=== PATIENT | female | born 1960 | race Caucasian/White ===

== ENCOUNTER 2019-03-10 18:05 | Emergency (ER) | payer MEDICARE, OTHER ==
[2019-03-10] MEDS ORDERED: diphenhydrAMINE 50 MG/ML VIAL ONE (18:36)
[2019-03-10] MEDS ORDERED: Metoclopramide HCl 10 MG/2 ML VIAL ONE (18:36)
[2019-03-10 18:51] LABS: #Basophils 0.1 thou/uL (0.0-0.2); #Eosinphils 0.3 thou/uL (0.0-0.7); #Lymphocytes 1.3 thou/uL (1.20-3.40); #Monocytes 0.4 thou/uL (0.11-0.59); #Neutrophils 5.7 thou/uL (1.40-6.50); %Basophils 0.7 % (0.0-1.0); %Eosinophils 3.7 % (0.0-10.0); %Lymphocytes 16.4 % (21.0-51.0); %Monocytes 5.5 % (0.0-10.0); %Neutrophils 73.7 % (42.0-75.0); Hemoglobin 13.3 g/dL (12.0-16.0); Mean Corpuscular HGB CONC 33.8 g/dL (32.0-36.0); Mean Corpuscular Hemoglobin 32.1 pg (27.0-31.0); Mean Corpuscular Volume 94.8 fL (78.0-98.0); Mean Platelet Volume 9.2 fL (7.4-10.4); Platelet Count 164 thou/uL (130-400); RBC Distribution Width 11.9 % (11.5-14.5); Red Blood Cell (RBC) Count 4.15 mill/uL (4.20-5.40); White Blood Cell (WBC) Count 7.8 thou/uL (4.8-10.8)
[2019-03-10] MEDS ORDERED: Ketorolac Tromethamine 30 MG/ML VIAL ONE (19:13)
[2019-03-10] MEDS ORDERED: methylPREDNISolone Sod Succ/PF 125 MG/2 ML VIAL ONE (19:13)
[2019-03-10 19:16] LABS: ALT (SGPT) 11 U/L (8-55); AST (SGOT) 19 U/L (5-34); Albumin 4.1 g/dL (3.5-5.0); Alkaline Phosphatase 147 U/L (40-110); Anion Gap 14 mmol/L (10-20); BUN (Urea Nitrogen) 9 mg/dL (9.8-20.1); Bilirubin, Total 0.4 mg/dL (0.2-1.2); Calc. Creatinine Clearance 0 mL/min (70-130); Calcium 9.2 mg/dL (7.8-10.44); Carbon Dioxide 23 mmol/L (22-29); Chloride 107 mmol/L (98-107); Estimated GFR-MDRD 52; Globulin 3.1 g/dL (2.4-3.5); Glucose 110 mg/dL (70-105); Potassium 4.6 mmol/L (3.5-5.1); Protein, Total 7.2 g/dL (6.0-8.3); Sodium 139 mmol/L (136-145)
--- NOTE | 2019-03-10 19:21 | RAD ---
PORTABLE CHEST: 03/10/19 HISTORY: Dyspnea. Heart size and mediastinum are within normal limits. The lungs are clear of any infiltrative process. No significant bony findings. IMPRESSION: No active intrathoracic disease. POS: [facility]
== END 2019-03-10 22:12 | disposition home or self-care (01) ==
LOC: ERS 18:05
DX: J18.9 Pneumonia, unspecified organism (principal); G43.909 Migraine, unspecified, not intractable, without status migrainosus; I49.9 Cardiac arrhythmia, unspecified; F41.9 Anxiety disorder, unspecified; F17.210 Nicotine dependence, cigarettes, uncomplicated; Z79.899 Other long term (current) drug therapy
CPT/HCPCS: 71045; 80053; 83880; 84484; 85025; 87804; 93005; 94640; 94760; 96361; 96365; 96375; J1200; J1885; J2765; J2930; J7620

== ENCOUNTER 2020-04-16 15:19 | Observation (INO) | payer MEDICARE, OTHER ==
[2020-04-16 15:53] LABS: #Eosinphils 0.2 thou/uL (0.0-0.7); #Lymphocytes 2.3 thou/uL (1.20-3.40); #Monocytes 0.6 thou/uL (0.11-0.59); #Neutrophils 6.1 thou/uL (1.40-6.50); %Basophils 0.5 % (0.0-1.0); %Eosinophils 1.8 % (0.0-10.0); %Lymphocytes 25.1 % (21.0-51.0); %Monocytes 6.3 % (0.0-10.0); %Neutrophils 66.3 % (42.0-75.0); Hemoglobin 11.9 g/dL (12.0-16.0); Mean Corpuscular HGB CONC 33.3 g/dL (32.0-36.0); Mean Corpuscular Hemoglobin 32.5 pg (27.0-31.0); Mean Corpuscular Volume 97.7 fL (78.0-98.0); Mean Platelet Volume 8.9 fL (7.4-10.4); Platelet Count 187 thou/uL (130-400); RBC Distribution Width 12.6 % (11.5-14.5); Red Blood Cell (RBC) Count 3.66 mill/uL (4.20-5.40); White Blood Cell (WBC) Count 9.2 thou/uL (4.8-10.8)
[2020-04-16 15:59] LABS: Prothrombin Time 13.4 sec (12.0-14.7)
[2020-04-16 16:16] LABS: ALT (SGPT) 17 U/L (8-55); AST (SGOT) 40 U/L (5-34); Albumin 3.9 g/dL (3.5-5.0); Alkaline Phosphatase 103 U/L (40-110); Anion Gap 13 mmol/L (10-20); BUN (Urea Nitrogen) 14 mg/dL (9.8-20.1); Bilirubin, Total 0.2 mg/dL (0.2-1.2); Calc. Creatinine Clearance 0 mL/min (70-130); Calcium 8.9 mg/dL (7.8-10.44); Carbon Dioxide 23 mmol/L (22-29); Chloride 108 mmol/L (98-107); Globulin 3.1 g/dL (2.4-3.5); Glucose 138 mg/dL (70-105); Sodium 142 mmol/L (136-145)
[2020-04-16 16:23] LABS: Potassium 2.4 mmol/L (3.5-5.1)
--- NOTE | 2020-04-16 16:33 | CT ---
Head CT without contrast 04/16/2020: COMPARISON: 06/28/2015 HISTORY: Left-sided weakness and numbness with slurred speech TECHNIQUE: Axial CT imaging at 5 mm intervals from vertex through skull base without contrast FINDINGS: The visualized paranasal sinuses and mastoid air cells are well-aerated. No displaced mary rial fracture. No intracranial hemorrhage, midline shift, mass effect, or ventricular enlargement. IMPRESSION: No acute findings. Results called to Dr. Stallings 4:27 PM 04/16/2020
[2020-04-16] MEDS ORDERED: Potassium Chloride 20 MEQ TAB ONE (16:59)
[2020-04-16 17:25] LABS: Bacteria/HPF 3+ HPF (None Seen); Bilirubin Negative (Negative); Blood, Urine 1+ (Negative); Clarity Turbid (Clear); Glucose, Urine (Dipstick) Normal (Negative); Ketone, Urine Negative (Negative); Leukocyte 250 Leu/uL (Negative); Nitrite 2+ (Negative); Protein, Urine (Dipstick) 70 mg/dL (Neg-Trace); RBC/HPF 0-3 HPF (0-3); Specific Gravity, Urine 1.024 (1.002-1.036); Squamous Epithelial 0-3 HPF (0-3); Urobilinogen Normal mg/dL (Less than 2); WBC/HPF 21-50 HPF (0-3)
[2020-04-16] MEDS ORDERED: Aspirin 325 MG TAB ONE (17:26)
[2020-04-16] MEDS ORDERED: Cefepime 1 GM VIAL ONE (18:47)
[2020-04-16 21:06] VITALS: BMI 29.1
[2020-04-16] MEDS ORDERED: Calcium Carbonate 500 MG ChewTAB PO PRN (21:09)
[2020-04-16] MEDS ORDERED: Ondansetron ODT 4 MG TAB PO PRN (21:09)
[2020-04-16] MEDS ORDERED: Acetaminophen 325 MG TAB PO PRN (21:09)
[2020-04-16] MEDS ORDERED: hydrALAZINE 20 MG/ML VIAL SLOW IVP PRN (21:12)
--- NOTE | 2020-04-16 21:20 | PDOC.FPRHP ---
- History of Present Illness Chief Complaint: altered History of Present Illness: Pt is a 60 yo F with a PMH of bipolar, schizophrenia, anxiety, HTN, arrythmia, SVT who presents with chief complaint of being altered after being found down by neighbor. Patient has no recollection of events that happened surrounding her f all. She denies LOC. States nothing like this has happened in the past. She states her neighbor found her and her son is the one who brought her to the ED, however her story changed multiple times. She did state that she knows she had a panic attack this morning and states that these have been increasing in number and intensity. She is unsure of triggers. She follows with Dr. Rouse, psychiatrist, last apt was yesterday. He made no medication changes. She is a poor historian, and she has tangential, broken speech. Denies PANDA, vision changes, CP, SOB, fever, abdominal pain, history of seizure disorder. She does say she has been dizzy and weak for the last week with a decreased appetite. She lives at home alone. ED Course: 1L fluids, Kdur 40mEq, ASA, Rocephin - Allergies/Adverse Reactions Allergies Allergy/AdvReac Type Severity Reaction Status Date / Time codeine Allergy Anaphylaxis Verified 04/16/20 21:34 Sulfa (Sulfonamide Allergy Verified 04/16/20 21:34 Antibiotics) - Home Medications Medication Instructions Recorded Confirmed Type Gabapentin 1 cap PO QID 04/16/20 04/17/20 History Levetiracetam [levETIRAcetam] 250 mg PO BID 04/16/20 04/17/20 History Propranolol HCl [Propranolol HCl 120 mg PO DAILY 04/16/20 04/17/20 History ER] Topiramate 150 mg PO BID 04/16/20 04/17/20 History clonazePAM [Clonazepam] 2 mg PO TID PRN 04/16/20 04/17/20 History Cephalexin [Keflex] 500 mg PO Q12H 2 Days #3 cap 04/17/20 Rx Cyanocobalamin (Vitamin B-12) 1,000 mcg PO DAILY 30 Days #30 tab 04/17/20 Rx [Vitamin B-12] Folic Acid [Folvite] 1 mg PO DAILY 30 Days #30 tab 04/17/20 Rx - History PMHx: bipolar, schizophrenia, anxiety, HTN, arrythmia, SVT PSHx: bilateral shoulder surgery FHx: parents- cancer of some kind Social: 50 pack year history smoking 1ppd, denies alcohol or drugs - Review of Systems ROS unobtainable: due to mental status (limited due to mental status) General: denies: fever/chills Eyes: denies: vision changes Respiratory: denies: shortness of breath Cardiovascular: denies: chest pain Psychological: denies: anxiety, depression - Vital signs BP: 125/65 HR: 77 RR: 16 Pox: 98% on RA Wt: 79kg - Physical Exam -Constitutional: unusual affect, NAD and non toxic appearing but sleepy HEENT: normocephalic and atraumatic, EOMI, grossly normal vision, grossly normal hearing -HEENT: pupils do not react appropriately to light, right side even more sluggish than left, pupils dilated Neck: supple Heart: RRR, normal S1/S2 Lungs: CTAB, no respiratory distress Abdomen: soft, non-tender Neurological: CN II-XII intact -Neurological: dysdiadochokinesia and dysmetria noted on exam Skin: capillary refill <2 seconds -Psychiatric: speech is broken and tangential FMR H&P: Results - Labs Result Diagrams: 04/17/20 07:53 04/17/20 13:29 Lab results: WBC 9.2 thou/uL (4.8-10.8) 04/16/20 15:37 Hgb 11.9 g/dL (12.0-16.0) L 04/16/20 15:37 Hct 35.8 % (36.0-47.0) L 04/16/20 15:37 MCV 97.7 fL (78.0-98.0) 04/16/20 15:37 Plt Count 187 thou/uL (130-400) 04/16/20 15:37 Neutrophils % 66.3 % (42.0-75.0) 04/16/20 15:37 Sodium 142 mmol/L (136-145) 04/16/20 15:37 Potassium 2.4 mmol/L (3.5-5.1) L* 04/16/20 15:37 Chloride 108 mmol/L (98-107) H 04/16/20 15:37 Carbon Dioxide 23 mmol/L (22-29) 04/16/20 15:37 BUN 14 mg/dL (9.8-20.1) 04/16/20 15:37 Creatinine 1.50 mg/dL (0.6-1.1) H 04/16/20 15:37 Glucose 138 mg/dL (70-105) H 04/16/20 15:37 Lactic Acid 1.1 mmol/L (0.5-2.2) 04/16/20 16:09 Calcium 8.9 mg/dL (7.8-10.44) 04/16/20 15:37 Total Bilirubin 0.2 mg/dL (0.2-1.2) 04/16/20 15:37 AST 40 U/L (5-34) H 04/16/20 15:37 ALT 17 U/L (8-55) 04/16/20 15:37 Alkaline Phosphatase 103 U/L (40-110) 04/16/20 15:37 Serum Total Protein 7.0 g/dL (6.0-8.3) 04/16/20 15:37 Albumin 3.9 g/dL (3.5-5.0) 04/16/20 15:37 Urine Ketones Negative mg/dL (Negative) 04/16/20 12:18 Urine Blood 1+ (Negative) A 04/16/20 12:18 Urine Nitrite 2+ (Negative) A 04/16/20 12:18 Ur Leukocyte Esterase 250 Marc/uL (Negative) A 04/16/20 12:18 Urine RBC 0-3 HPF (0-3) 04/16/20 12:18 Urine WBC 21-50 HPF (0-3) A 04/16/20 12:18 Ur Squamous Epith Cells 0-3 HPF (0-3) 04/16/20 12:18 Urine Bacteria 3+ HPF (None Seen) A 04/16/20 12:18 - EKG Interpretation EKG: NSR FMR H&P: A/P - Plan Encephalopathy 2/2 CVA vs drug use -last seen normal >24 hours ago -dysarthria, dysmetria, dysdiadochokinesia, pupils dilated, trouble with light reflex -follow up brain MRI, CTA neck, echo UDS, lipid panel -continue ASA daily -passed bedside dysphagia screen -PT/OT to treat -neuro checks hypokalemia -aware, replace as indicated -check Mg, Phos UTI -UA suggestive of UTI -follow up culture -Continue Rocephin (04/15) pending sensitivities Anemia -MCV 97.7 -follow up folate, B12, thiamine VICTORINO -Baseline in 2019 was 1.08 -elevated on admission, continue MIVF -recheck with morning labs HTN -aware, continue home meds history of SVT -aware, continue home meds Dispo: admit to Obs, stroke PCP: [facility] Diet: HH IVF: 120mL/hr of LR DVT ppx: Lovenox Code: FULL FMR H&P: Upper Level - Plan Date/Time: 04/16/202118 I, Nigel Narvaez PGY3, have evaluated this patient and agree with findings/plan as outlined by financial analyst intern resident. Pertinent changes/additions are listed here. 60yo F with pmh of spinal surgeries resulting in weakness on R side presents for 24hr hx of increased weakness and some gait issues and dysarthria. Denies prior CVA. Pt is notably a very challenging historian only responding to some questions. Reports her memory is not very good On exam she is well appearing and in no distress. Cardiopulm exam wnl. Neuro exam significant for R and L pupil minimally reactive to light. R pupil not reactive at all. 4/5 strength on hip flexion and ankle flexion. +1 reflexes bilateral patellar. A/P TIA vs. CVA A- stable with dysarthria and possible increased weakness on R side as seemingly only new deficit. out of time window for TPA. CT brain wnl P- admit for obs to stroke -neuro checks -continue ASA at 81mg /day -PT -passed dysphagia screen -brain MRI -echo -CTA head and neck -FLP -UDS UTI -dysuria with confirmation on UA. Start rocephin and f/u UCx Hypokalemia -unsure of etiology. s/p 40meq, will give additional 40meq and recheck in AM draw bipolar, schizophrenia, anxiety, HTN, arrythmia -stable, continue home meds CODE: FULL Dispo: Obs, stroke PCP: [facility] Diet: HH IVF: 120mL/hr LR DVT ppx: Lovenox Addendum - Attending - Attending Attestation Date/Time: 04/16/202157 I personally evaluated the patient and discussed the management with Dr. Nagel and Dr. Narvaez I agree with the History, Examination, Assessment and Plan documented above with any addition or exceptions noted below. Patient found down by neighbor. During evaluation suspecting polypharmacy or drug use due to exam findings and speech along with dry mouth and alteration in concentration. UDS pending. CT of head negative. Consider MRI in AM to rule out central cortical or cerebellar ischemia. Will call pharmacy to review prescribed meds. Efren
[2020-04-16] MEDS ORDERED: Potassium Chloride 40 MEQ in Sodium Chloride 0.9% 250 ML 250 ML IVPB SCH (21:45)
[2020-04-16] MEDS ORDERED: Lactated Ringer's 1,000 ML IV SCH (23:00)
[2020-04-16 23:21] LABS: Amphetamine Not Detected (NotDetected); Barbiturates Screen Not Detected (NotDetected); Benzodiazepine Screen Not Detected (NotDetected); Cocaine Metabolite Screen Detected (NotDetected); Medtox Control Line Valid? VALID (VALID); Medtox Reader # READER 4; Methadone Not Detected (NotDetected); Methamphetamine Not Detected (NotDetected); Opiate Screen Not Detected (NotDetected); Oxycodone Screen Not Detected (NotDetected); Phencyclidine (PCP) Not Detected (NotDetected); THC/Cannabinoid Screen Not Detected (NotDetected); Tricyclic Screen Detected (NotDetected)
[2020-04-17] MEDS ORDERED: Sodium Chloride 0.9% 1,000 ML IV SCH (03:15)
--- NOTE | 2020-04-17 06:09 | PDOC.FM ---
- Subjective Subjective: Patient is resting comfortably in bed. She states that she feels improved today. She states that she was confused yesterday and she fell 2 times. She notes that she has falling more in the past week. She notes she did not have anything to eat yesterday and states she has been eating a lot less due to her depression. She just saw her psychiatrist 2 days ago, but they made no medication changes. She states when she fell yesterday she got dizzy beforehand. Denies heart racing, shortness of breath, sweating before fall. She denies chest pain, shortness of breath, PANDA, fever/chills. Denies taking any drugs including coca ine. Denies alcohol use. Smokes 1.5-2ppd x 20+ years. - Objective MAR Reviewed: Yes Vital Signs & Weight: Vital Signs (12 hours) Temp Pulse Resp BP Pulse Ox 04/17/20 04:00 97.7 F 89 18 135/75 96 04/17/20 00:00 98.2 F 74 20 112/65 94 L 04/16/20 23:36 100 04/16/20 20:10 97.7 F 85 16 127/68 100 Weight Weight 79.379 kg Result Diagrams: 04/17/20 07:53 04/17/20 05:35 Phys Exam - Physical Examination Constitutional: NAD HEENT: PERRLA, moist MMs mentalis twitching Respiratory: no wheezing, clear to auscultation bilateral Cardiovascular: RRR, no significant murmur Gastrointestinal: soft, non-tender, positive bowel sounds Musculoskeletal: no edema essential tremor of bilateral arms CN II-XII intact. Mild Dysarthria. No dysmetria, no dysdiadokinesia. Strength diminshed on RUE, reportedly chronic, otherwise strenght intact Psychiatric: A&O x 3 Skin: no rash Dx/Plan - Plan Plan: Encephalopathy 2/2 Suspected ETOH intoxication vs Drug use vs TIA/CVA Last seen normal >24 hours ago On admission - dysarthria, dysmetria, dysdiadochokinesia, pupils dilated, trouble with light reflex Today mild dysarthria, no dysmetria or dysdiadochokinesia UDS+ cocaine, tricyclics CTA neck: no stenosis -follow up brain MRI -continue ASA daily -passed bedside dysphagia screen -PT/OT to treat -neuro checks - ASE protocol, thiamine started hypokalemia -aware, replace as indicated Hypophosphatemia 2.1 - will replete Pulmonary Nodular Density in MICHAEL, Incidental Finding - Incidental findings on CTA - f/u CT adivsed, can do in outpatient setting L Thyroid nodule, Incidental Finding Recommend thyroid US, can do in outpatient setting UTI -UA suggestive of UTI -follow up culture -Continue Rocephin (04/15) pending sensitivities Anemia, Megalobalstic -MCV 97.7 -Decreased folate and B12 -will replete VICTORINO, resolved -Baseline in 2019 was 1.08, back to baseline -elevated on admission -recheck with morning labs Hx of Depression/Anxiety - resume home medications HTN -aware, continue home meds history of SVT -aware, continue home meds Dispo: admit to Obs, stroke PCP: [facility] Diet: HH IVF: SL DVT ppx: Lovenox Code: FULL Addendum - Attending - Attending Attestation Date/Time: 04/17/20 104 I personally evaluated the patient and discussed the management with Dr. Kim. I agree with the History, Examination, Assessment and Plan documented above with any addition or exceptions noted below. Patient here for AMS and concern for CVA. MRI this morning. She has multiple reasons for encephalopathy including cocaine abuse, possible UTI, polypharmacy. We will make medication adjustments and continue abx for now, await urine cx. Discuss with family. Dispo pending further workup.
[2020-04-17 06:10] LABS: Phosphorus 2.1 mg/dL (2.3-4.7)
[2020-04-17 06:12] LABS: ALT (SGPT) 19 U/L (8-55); AST (SGOT) 42 U/L (5-34); Albumin 3.3 g/dL (3.5-5.0); Alkaline Phosphatase 90 U/L (40-110); Anion Gap 11 mmol/L (10-20); BUN (Urea Nitrogen) 13 mg/dL (9.8-20.1); Bilirubin, Total 0.2 mg/dL (0.2-1.2); Calc. Creatinine Clearance 72 mL/min (70-130); Carbon Dioxide 21 mmol/L (22-29); Chloride 114 mmol/L (98-107); Cholesterol 212 mg/dl (< 200 Desired); Globulin 2.6 g/dL (2.4-3.5); Glucose 97 mg/dL (70-105); HDL Cholesterol 42 mg/dL (>60 Neg Risk); LDL Cholesterol, Calculated 134 mg/dL; Protein, Total 5.9 g/dL (6.0-8.3); Sodium 143 mmol/L (136-145); Triglycerides 178 mg/dL (Less than 150)
[2020-04-17 06:36] LABS: Syphilis Antibody Nonreactive (Nonreactive); Syphilis Antibody Index 0.03 S/CO (<1.00 Non-Reactive)
[2020-04-17 06:37] LABS: Vitamin B12 201 pg/mL (211-911)
[2020-04-17 06:44] LABS: HIV (1/2) Antibody/Antigen Non-Reactive (NonReactive); HIV 1/2 INDEX 0.13 S/CO (<1.00); Hep C IgG Ab Non-Reactive (NonReactive); Hep C Index 0.33 S/CO (0-0.79)
[2020-04-17 08:16] LABS: #Eosinphils 0.2 thou/uL (0.0-0.7); #Lymphocytes 1.8 thou/uL (1.20-3.40); #Monocytes 0.4 thou/uL (0.11-0.59); #Neutrophils 4.2 thou/uL (1.40-6.50); %Basophils 0.6 % (0.0-1.0); %Eosinophils 2.4 % (0.0-10.0); %Lymphocytes 27.4 % (21.0-51.0); %Neutrophils 63.6 % (42.0-75.0); Hemoglobin 10.8 g/dL (12.0-16.0); Mean Corpuscular HGB CONC 32.9 g/dL (32.0-36.0); Mean Corpuscular Hemoglobin 32.7 pg (27.0-31.0); Mean Corpuscular Volume 99.3 fL (78.0-98.0); Mean Platelet Volume 9.1 fL (7.4-10.4); Platelet Count 151 thou/uL (130-400); RBC Distribution Width 12.6 % (11.5-14.5); Red Blood Cell (RBC) Count 3.31 mill/uL (4.20-5.40); White Blood Cell (WBC) Count 6.6 thou/uL (4.8-10.8)
[2020-04-17] MEDS ORDERED: Potassium Phosphate 30 MMOL in Sodium Chloride 0.9% 250 ML 250 ML IVPB SCH (08:30)
[2020-04-17] MEDS ORDERED: Potassium Chloride 20 MEQ TAB PO SCH (08:30)
--- NOTE | 2020-04-17 08:46 | CT ---
CT angiogram neck: 04/17/2020 COMPARISON: None HISTORY: Altered mental status, fall, possible acute infarction TECHNIQUE: Axial CT imaging at 1.25 mm intervals from the skull base through the lung apices with IV contrast using CT angiogram protocol. Coronal and sagittal 3-D reformatted imaging obtained. FINDINGS: There is a 1 cm nodular density on axial image 1 within the left upper lobe, only partially visualized on this examination. A dedicated CT examination of the chest is advised for full assessment. Partially imaged paranasal sinuses and mastoid air cells demonstrate evidence of prior paranasal sinu s surgery. The imaged retroantral fat and parapharyngeal fat appears unremarkable bilaterally. The parotid glands and submandibular glands appear grossly unremarkable. Limited assessment for an aerodi gestive tract abnormality appears unremarkable on this examination. There is a nodule within the posterior aspect of the left lobe of the thyroid gland measuring at least 1.1 cm. Follow-up thyroid u ltrasound is thus recommended. No enlarged lymph nodes are apparent within the neck. Origin of the innominate artery, right subclavian artery, right common carotid artery, left common ca rotid artery, and left subclavian artery unremarkable. The bilateral vertebral arteries are patent. The right vertebral artery is hypoplastic and appears to terminate in the right posterior inferior ce rebellar artery. Dominant left vertebral artery is unremarkable. On the basis of NASCET criteria there is no hemodynamically significant stenosis involving the common carotid artery or the internal carotid artery on either side. Mild partially calcified plaque is noted involving the distal right common carotid artery as well as the proximal left internal carotid artery. Anterior discectomy and fusion hardware is present at C5-6. No acute osseous abnormality is evident. IMPRESSION: No hemodynamically significant stenosis on the basis of NASCET criteria is seen involving the common carotid or internal carotid artery on either side. Partially imaged pulmonary nodular density in the left upper lobe for which a follow-up chest CT is a dvised. Recommend thyroid ultrasound secondary to left thyroid nodule as detailed above. CODE T
[2020-04-17] MEDS ORDERED: Aspirin 81 mg Enteric Coated Tablet PO SCH (09:00)
[2020-04-17] MEDS ORDERED: clonazePAM 1 MG TAB PO SCH (09:00)
[2020-04-17] MEDS ORDERED: FLU VACC QS2020-21(6MOS UP)/PF 60 MCG/0.5 ML SYRINGE IM ONE (09:00)
[2020-04-17] MEDS ORDERED: Propranolol HCl LA 60 MG CAP PO SCH (09:00)
[2020-04-17] MEDS ORDERED: Gabapentin 400 MG CAP PO SCH (09:00)
[2020-04-17] MEDS ORDERED: Aspirin 325 mg Enteric Coated Tablet PO SCH (09:00)
[2020-04-17] MEDS ORDERED: Topiramate 25 MG TAB PO SCH (09:00)
[2020-04-17] MEDS ORDERED: Enoxaparin Sodium 40 MG/0.4 ML SYRINGE SC SCH (09:00)
[2020-04-17] MEDS ORDERED: DULoxetine 60 MG CAP PO SCH (09:00)
[2020-04-17] MEDS ORDERED: Folic Acid 1 MG TAB PO SCH (10:00)
[2020-04-17] MEDS ORDERED: Cyanocobalamin (Vitamin B-12) 1,000 MCG TAB PO SCH (10:00)
[2020-04-17] MEDS ORDERED: Thiamine 100 MG TAB PO SCH (10:00)
--- NOTE | 2020-04-17 10:57 | MRI ---
MRI OF THE BRAIN WITHOUT AND WITH CONTRAST: Date: 04/17/2020 HISTORY: Left-sided weakness and numbness with slurred speech. COMPARISON: CT brain 04/16/2020. TECHNIQUE: Multiplanar, multisequence MR images obtained of the brain without contrast. FINDINGS: The brain demonstrates normal signal intensity on all obtained sequences. No restricted diffusion is seen to suggest an acute infarction. There is no evidence of hydrocephalus, intracranial hemorrhage, or extra-axial fluid collection. The expected flow-voids are present. The corpus callosum, pituitary, and craniocervical junction are unre markable. The calvarium and overlying soft tissues are unremarkable. The visualized paranasal sinuses and masto id air cells are well aerated. IMPRESSION: No evidence of acute intracranial abnormality. POS: [facility]
[2020-04-17] MEDS ORDERED: Cephalexin 250 MG CAP PO SCH ×2 (11:30→21:00)
[2020-04-17] MEDS ORDERED: Iopamidol-370 76% 500 ML 1 ML ONE (12:59)
[2020-04-17 13:05] LABS: SARS-CoV-2 MS2 Positive; SARS-CoV-2 N Gene Negative; SARS-CoV-2 S Gene Negative; SARS-CoV-2 by NAA Not Detected (NotDetected); SARS-CoV-2 orf1ab Negative
[2020-04-17 17:33] LABS: Anion Gap 15 mmol/L (10-20); BUN (Urea Nitrogen) 10 mg/dL (9.8-20.1); Calc. Creatinine Clearance 76 mL/min (70-130); Calcium 8.4 mg/dL (7.8-10.44); Carbon Dioxide 20 mmol/L (22-29); Chloride 110 mmol/L (98-107); Glucose 106 mg/dL (70-105); Potassium 3.5 mmol/L (3.5-5.1); Sodium 141 mmol/L (136-145)
[2020-04-17] MEDS ORDERED: levETIRAcetam 500 mg/5 ml Oral Solution PO SCH (21:00)
[2020-04-17] MEDS ORDERED: cefTRIAXone\\ROCEPHIN 1 GM in Sodium Chloride 0.9% 100 ML IVPB SCH (22:00)
[2020-04-18 02:41] VITALS: BP 136/66; TEMP 98.7
[2020-04-18] MEDS ORDERED: Thiamine 100 MG TAB PO SCH (09:00)
[2020-04-18] MEDS ORDERED: Folic Acid 1 MG TAB PO SCH ×2 (09:00)
[2020-04-18] MEDS ORDERED: Cyanocobalamin (Vitamin B-12) 1,000 MCG TAB PO SCH ×2 (09:00)
[2020-04-18] MEDS ORDERED: DULoxetine 60 MG CAP PO SCH ×2 (09:00)
--- NOTE | 2020-04-18 14:55 | DIS ---
DATE OF ADMISSION: 04/16/2020 DATE OF DISCHARGE: 04/17/2020 ADMITTING ATTENDING: Yi Tejada MD DISCHARGE ATTENDING: Yann Kamara MD RESIDENT: Roxann Kim DO CONSULTS: None. PROCEDURES: CTA neck, no stenosis involving the common carotid or ICA. Partially-imaged pulmonary nodule density in the left upper lobe for which a followup chest CT is advised. Recommend thyroid ultrasound secondary to left thyroid nodule. PRIMARY DIAGNOSIS: Encephalopathy secondary to suspected polypharmacy in addition to drug toxicity. SECONDARY DIAGNOSES: 1. Hypokalemia, resolved 2. Hypophosphatemia. 3. Pulmonary nodular density in left upper lobe, incidental finding. 4. Left thyroid nodule, incidental finding. 5. Urinary tract infection. 6. Anemia, megaloblastic secondary to decreased folate and B12. 7. Acute kidney injury, resolved. 8. History of depression and anxiety. 9. Hypertension. 10. History of supraventricular tachycardia. DISCHARGE MEDICATIONS: 1. Folic acid 1 mg p.o. daily for 30 days. 2. Keflex 500 mg p.o. q.12 hours for 2 days. 3. Vitamin B12 of 1000 mcg p.o. daily for 30 days. 4. Clonazepam 2 mg p.o. t.i.d. 5. Gabapentin 400 mg capsule one cap p.o. q.i.d. 6. Keppra 250 mg p.o. b.i.d. 7. Propranolol 120 mg p.o. daily. 8. Topiramate 150 mg p.o. b.i.d. 9. Duloxetine 60mg daily. DISCONTINUED MEDICATIONS: Seroquel 300mg daily. HISTORY OF PRESENT ILLNESS/HOSPITAL COURSE: The patient is a 60-year-old female with past medical history of anxiety, hypertension, arrhythmia, SVT, who presents with chief complaint being altered after being found down by a neighbor. The patient had no recollection of the events surrounding her fall. Her story changed multiple times. The patient had tangential broken speech, pupils were dilated, she had dysarthria, dysdiadochokinesia and dysmetria on exam. Her UDS was positive for cocaine and tricyclics. Her urine showed a UTI. The patient also taking Seroquel 300 daily and duloxetine 60 b.i.d. suspected polypharmacy versus drug intoxication versus UTI as a cause. Stroke was ruled out with a brain CT that was negative and a CT angio that was negative other than incidental findings as indicated above. The patient had an echo with the EF of 55% to 60%. Counseled on drug cessation and recommended that the patient stop taking her Seroquel and only take her duloxetine once daily with close followup with her neurologist and psychiatrist as those could have been causing her altered mental status. The patient received Rocephin x2 days for her UTI and was sent home with two additional days of Keflex. DISPOSITION: Stable. DISCHARGE INSTRUCTIONS: 1. Location: Home. 2. Diet: Regular. 3. Activity: Ad dorina. 4. Followup: Follow up with neurologist and psychiatrist in the next 1 to 2 weeks. Follow up with your primary care physician in the next 1 to 2 weeks. Job ID: [id number]
== END 2020-04-17 16:53 | disposition home or self-care (01) ==
LOC: ERS 15:19 → 2SE 17:29
PROVIDERS: ADMIT Student in an Organized Health Care Education/Training Program; ATTEND Student in an Organized Health Care Education/Training Program
DX: G92 Toxic encephalopathy (principal); T40.5X5A Adverse effect of cocaine, initial encounter; E87.6 Hypokalemia; E83.39 Other disorders of phosphorus metabolism; E04.1 Nontoxic single thyroid nodule; N39.0 Urinary tract infection, site not specified; D53.1 Other megaloblastic anemias, not elsewhere classified; N17.9 Acute kidney failure, unspecified; I10 Essential (primary) hypertension; F31.9 Bipolar disorder, unspecified; F41.9 Anxiety disorder, unspecified; F20.9 Schizophrenia, unspecified; I47.1 Supraventricular tachycardia; I49.9 Cardiac arrhythmia, unspecified; F17.210 Nicotine dependence, cigarettes, uncomplicated; R91.1 Solitary pulmonary nodule; R29.6 Repeated falls; Z79.899 Other long term (current) drug therapy; Z88.2 Allergy status to sulfonamides; Z88.5 Allergy status to narcotic agent
CPT/HCPCS: 70450; 70498; 70551; 80048; 80053 ×2; 80061; 80306; 80307; 82607; 82746; 82962; 83605; 83735; 84100; 84145; 84425; 84484; 85025 ×2; 85610; 85730; 86780; 86803; 87389; 93005; 93306; 94760; 96365; 96372; 97139 ×2; 97535; 99285; G0378 ×3; U0003; 36415; 36416; 81003; 81015; 87635; J0692; J1650; J3480; J7050; Q9967